=== PATIENT | male | born 1960 | race Caucasian/White ===

== ENCOUNTER 2017-12-10 17:50 | Emergency (ER) | payer OTHER ==
[~2017-12-10] VITALS: Ht 167.6 cm; Wt 68.0 kg
[~2017-12-10 17:50] MED LIST: CARB200C2 PO; DILA100C PO
[2017-12-10 18:01] VITALS: BP 162/82; PULSE 76; RESP 18; TEMP 98.4; O2SAT 99
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
[2017-12-10] MEDS ORDERED: IBUP-232 PO (21:30)
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
[2017-12-10 21:45] VITALS: BP 150/82; PULSE 74; RESP 16; O2SAT 99
== END 2017-12-10 21:50 | disposition home or self-care (01) ==
LOC: NEPD 17:50
DX: S20.219A Contusion of unspecified front wall of thorax, initial encounter (principal); V89.2XXA Person injured in unspecified motor-vehicle accident, traffic, initial encounter
CPT/HCPCS: 71046; 99283